=== PATIENT | male | born 1960 | race Caucasian/White ===

== ENCOUNTER → 2020-05-07 | Outpatient (CLI) | payer BC ==
[~2020-05-07] MED LIST: CPAP; MONT10T PO
== END ==
LOC: LAB SHORT 13:14
DX: E11.9 Type 2 diabetes mellitus without complications (principal)
CPT/HCPCS: 36415; 83036

== ENCOUNTER 2024-10-15 19:19 | Inpatient (IN) | payer OTHER ==
[~2024-10-15] VITALS: Ht 175.3 cm; Wt 120.5 kg
[~2024-10-15 19:19] MED LIST changes: -AMOCLA875 PO; -ATOR80 PO; -AZIT250 PO; -Aspir 8181 MG PO; -GLIP5 PO; -IBUP800 PO; -MULVITA PO; -OMEP20ER PO; -OXYM.05NI; -PRED20 PO; -VISBIOME 112.51 EACH PO
[2024-10-15 19:52] LABS: BASOPHILS ABSOLUTE AUTO 0.03 K/mm3 (0.00-0.23); BASOPHILS PERCENT AUTO 0 % (0-2); EOSINOPHILS ABSOLUTE AUTO 0.31 K/mm3 (0.00-0.68); EOSINOPHILS PERCENT AUTO 3 % (0-6); Hematocrit 47.3 % (37.0-53.0); Hemoglobin 16.8 g/dL (13.5-17.5); IMMATURE GRAN ABSOLUTE AUTO 0.04 K/mm3 (0.00-0.10); IMMATURE GRAN PERCENT AUTO 0 % (0-1); LYMPHOCYTES ABSOLUTE AUTO 0.98 K/mm3 (0.84-5.20); LYMPHOCYTES PERCENT AUTO 10 % (21-46); MONOCYTES ABSOLUTE AUTO 0.64 K/mm3 (0.16-1.47); MONOCYTES PERCENT AUTO 6 % (4-13); Mean Corpuscular HGB 32.1 pg (26.0-34.0); Mean Corpuscular HGB Conc 35.5 g/dL (31.5-36.5); Mean Corpuscular Volume 90 fL (80-100); Mean Platelet Volume 9.3 fL (9.1-12.4); NEUTROPHILS ABSOLUTE AUTO 8.34 K/mm3 (1.96-9.15); NEUTROPHILS PERCENT AUTO 81 % (41-73); Platelet Count 237 K/mm3 (150-400); RDW Coefficient Variation 12.1 % (11.7-14.2); RDW Standard Deviation 40.1 fL (35.1-46.3); Red Blood Cell Count 5.23 M/mm3 (4.30-5.90); White Blood Cell Count 10.34 K/mm3 (4.00-11.30)
[2024-10-15 20:17] LABS: Albumin, Blood 2.9 g/dL (3.4-5.0); Albumin/Globulin Ratio 0.7 (0.8-1.8); Bilirubin, Total 0.5 mg/dL (0.1-1.0); Bun/Creatinine Ratio 11.4 (12.0-20.0); Calcium, Blood 8.2 mg/dL (8.5-10.1); Creatinine, Blood 0.7 mg/dL (0.60-1.20); Globulin, Blood 4.2 g/dL (2.2-4.0); Potassium, Blood 3.5 mmol/L (3.5-5.5); Total Protein, Blood 7.1 g/dL (6.4-8.2)
[2024-10-15] MEDS ORDERED: Ipratropium/Albuterol SulF 2.5-0.5MG/3 ML Amp INH ONE (20:20)
[2024-10-15 21:21] LABS: CORONAVIRUS COVID-19 AG Negative (NEGATIVE); INFLUENZA A AG Negative (NEGATIVE); INFLUENZA B AG Negative (NEGATIVE)
[2024-10-15] MEDS ORDERED: Azithromycin 500 MG in NS 250 ML IV ONE (23:10)
[2024-10-15] MEDS ORDERED: CefTRIAXone Sodium 1,000 MG in NS 100 ML IV ONE (23:10)
[2024-10-16] VITALS (7 sets, daily range): BP systolic 113–142; BP diastolic 66–80
[2024-10-16] MEDS ORDERED: OXYM.05NI (01:34)
[2024-10-16] MEDS ORDERED: ATOR80 PO (01:34)
[2024-10-16] MEDS ORDERED: GLIP5 PO (01:35)
[2024-10-16] MEDS ORDERED: IBUP800 PO (01:36)
[2024-10-16] MEDS ORDERED: MULVITA PO (01:37)
[2024-10-16] MEDS ORDERED: Aspir 8181 MG PO (01:38)
[2024-10-16] MEDS ORDERED: Ondansetron HCl 2 MG / ML 2ML Vial IV PRN (02:00)
[2024-10-16] MEDS ORDERED: Ipratropium/Albuterol SulF 2.5-0.5MG/3 ML Amp INH PRN (02:00)
[2024-10-16] MEDS ORDERED: Potassium Chloride 40 MEQ in NS 250 ML IV ONE (02:20)
[2024-10-16] MEDS ORDERED: Piperacillin/Tazobactam Sod 4.5 GM in NS 100 ML IV SCH (02:21)
[2024-10-16] MEDS ORDERED: Vancomycin HCL 2,500 MG in NS 500 ML IV ONE (02:30)
[2024-10-16] MEDS ORDERED: MethylPREDNISolone Sod Succ 125 MG Vial IV SCH (03:00)
[2024-10-16 04:05] LABS: BASOPHILS ABSOLUTE AUTO 0.03 K/mm3 (0.00-0.23); BASOPHILS PERCENT AUTO 0 % (0-2); EOSINOPHILS PERCENT AUTO 20 % (0-6); Hematocrit 44.1 % (37.0-53.0); Hemoglobin 15.5 g/dL (13.5-17.5); IMMATURE GRAN ABSOLUTE AUTO 0.03 K/mm3 (0.00-0.10); IMMATURE GRAN PERCENT AUTO 0 % (0-1); LYMPHOCYTES ABSOLUTE AUTO 1.31 K/mm3 (0.84-5.20); LYMPHOCYTES PERCENT AUTO 14 % (21-46); MONOCYTES ABSOLUTE AUTO 0.76 K/mm3 (0.16-1.47); MONOCYTES PERCENT AUTO 8 % (4-13); Mean Corpuscular HGB 31.8 pg (26.0-34.0); Mean Corpuscular HGB Conc 35.1 g/dL (31.5-36.5); Mean Corpuscular Volume 91 fL (80-100); Mean Platelet Volume 9.6 fL (9.1-12.4); NEUTROPHILS PERCENT AUTO 58 % (41-73); Platelet Count 220 K/mm3 (150-400); RDW Standard Deviation 39.8 fL (35.1-46.3); Red Blood Cell Count 4.87 M/mm3 (4.30-5.90); White Blood Cell Count 9.63 K/mm3 (4.00-11.30)
[2024-10-16 05:00] LABS: Albumin, Blood 2.5 g/dL (3.4-5.0); Albumin/Globulin Ratio 0.7 (0.8-1.8); Bilirubin, Total 0.5 mg/dL (0.1-1.0); Calcium, Blood 7.8 mg/dL (8.5-10.1); Creatinine, Blood 0.59 mg/dL (0.60-1.20); Globulin, Blood 3.7 g/dL (2.2-4.0); Potassium, Blood 3.5 mmol/L (3.5-5.5); Total Protein, Blood 6.2 g/dL (6.4-8.2)
[2024-10-16 05:40] LABS: Source, Urine Clean Catch
--- NOTE | 2024-10-16 05:51 | NUR ---
ASSUMPTION OF CARE REPORT RECEIVED FROM ER NURSE. PT ARRIVED TO PCU AROUND 0116. PT TRANSFERED FROM [facility] TO PCU BED WITH NURSE ASSIST. PT A&O X4. HR IN THE 90'S-100'S, SR. HE DENIED CP/PRESSURE, NUMB/TINGLING. SBP STABLE. PT ON 6L VIA NC UPON ARRIVAL. PT DESATING TO 86%, PT PLACED ON OXYMASK 6L. PT REPORTS HX OF KRAIG. RT TO BEDSIDE TO SET UP CPAP. PT ON CPAP FOR APPROX 3 HOURS AND REMOVED IT. PT PLACED BACK ON OXYMASK, O2 >90%. PT ORIENTED TO ROOM. CALL LIGHT IN REACH. PT DENIES QUESTIOSN OR CONCERNS. WILL MONITOR PT.
[2024-10-16 05:54] LABS: Bilirubin, Urine Neg (Neg); Blood, Urine Neg (Neg); Glucose Qualitative, Urine 2+ (Neg); Ketones, Urine 3+ (Neg); Leukocyte Esterase, Urine Neg (Neg); Nitrite, Urine Neg (Neg); Protein, Urine 1+ (Neg); Specific Gravity, Urine 1.015 (1.003-1.022); Urobilinogen, Urine NORM (Normal)
--- NOTE | 2024-10-16 05:56 | NUR ---
SHIFT SUMMARY PT A&O X4. CALM, COOPERATIVE TO CARE. HR IN THE 90'S-100'S, SINUS RHYTHM. HE DENIES CP/PRESSURE, NUMB/TINGLING. SBP STABLE. O2 >90% ON 6L VIA OXYMASK. PROVIDER TO BEDSIDE TO DISCUSS PLAN OF CARE WITH PT. PT AGREEABLE TO PLAN. PER PROVIDER PT OKAY TO HAVE CLEAR LIQUIDS, SAMLL BITES OF FOOD BUT NOT TOO MUCH. PT RESTING IN BED AT THIS TIME. CALL LIGHT IN REACH HE DENIES QUESTIONS OR CONCERNS. WILL MONITOR PT AND REPORT TO ONCOMING RN.
[2024-10-16 06:26] LABS: Appearance, Urine Clear (Clear); Color, Urine Yellow (P-Yellow)
[2024-10-16] MEDS ORDERED: Aspirin 81 MG TabEC PO SCH (09:00)
[2024-10-16] MEDS ORDERED: Enoxaparin 40 MG/0.4 ML SYR SC SCH (09:00)
[2024-10-16 11:53] LABS: Adenovirus Not Detected (NOT DETECT); Bordetella pertussis Not Detected (NOT DETECT); Chlamydophila pneumoniae Not Detected (NOT DETECT); Coronavirus 229E Not Detected (NOT DETECT); Coronavirus HKU1 Not Detected (NOT DETECT); Coronavirus NL63 Not Detected (NOT DETECT); Coronavirus OC43 Not Detected (NOT DETECT); Human Metapneumovirus Not Detected (NOT DETECT); Human Rhinovirus/Enterovirus Not Detected (NOT DETECT); Influenza A/2009-H1 Not Detected (NOT DETECT); Influenza A/H1 Not Detected (NOT DETECT); Influenza A/H3 Not Detected (NOT DETECT); Influenza B Not Detected (NOT DETECT); Mycoplasma pneumoniae Not Detected (NOT DETECT); Parainfluenza Virus 1 Not Detected (NOT DETECT); Parainfluenza Virus 2 Not Detected (NOT DETECT); Parainfluenza Virus 3 Not Detected (NOT DETECT); Parainfluenza Virus 4 Not Detected (NOT DETECT); Respiratory Syncytial Virus Not Detected (NOT DETECT); SARS-Cov-2 (COVID-19), BioFire Not Detected (NOT DETECT)
[2024-10-16] MEDS ORDERED: Vancomycin HCL 1,750 MG in NS 500 ML IV SCH (15:00)
[2024-10-16] MEDS ORDERED: GlipiZIDE 5 MG Tab PO SCH (16:30)
--- NOTE | 2024-10-16 17:53 | NUR ---
SHIFT SUMMARY NO ACUTE CHANGES THIS SHIFT. PT A&OX4. SP02>90%ON 6L NC/MASK. PREFERS MASK. PRODUCTIVE OCCASIONAL COUGH. TELEMETRY SHOWS NSR, HR 80'S, VSS. DENIES PAIN. UP TO BATHROOM SBA TO VOID/HAVE BM X2 THIS SHIFT. PCR DONE, SEE RESULTS. SPUTUM COLLECTED, SENT TO LAB, SEE RESULTS. CBG ELEVATED THIS SHIFT, NOTIFIED. ABX INFUSED PER EMAR. PT RESTING IN ROOM EATING DINNER. CALL LIGHT IN REACH.
[2024-10-16] MEDS ORDERED: Atorvastatin 40 MG Tab PO SCH (18:00)
[2024-10-17 03:40] LABS: BASOPHILS ABSOLUTE AUTO 0.03 K/mm3 (0.00-0.23); BASOPHILS PERCENT AUTO 0 % (0-2); EOSINOPHILS ABSOLUTE AUTO 0.06 K/mm3 (0.00-0.68); EOSINOPHILS PERCENT AUTO 1 % (0-6); Hematocrit 44.2 % (37.0-53.0); Hemoglobin 15.5 g/dL (13.5-17.5); IMMATURE GRAN ABSOLUTE AUTO 0.05 K/mm3 (0.00-0.10); IMMATURE GRAN PERCENT AUTO 1 % (0-1); LYMPHOCYTES ABSOLUTE AUTO 0.84 K/mm3 (0.84-5.20); LYMPHOCYTES PERCENT AUTO 9 % (21-46); MONOCYTES ABSOLUTE AUTO 0.22 K/mm3 (0.16-1.47); MONOCYTES PERCENT AUTO 2 % (4-13); Mean Corpuscular HGB 32.4 pg (26.0-34.0); Mean Corpuscular HGB Conc 35.1 g/dL (31.5-36.5); Mean Corpuscular Volume 93 fL (80-100); Mean Platelet Volume 9.3 fL (9.1-12.4); NEUTROPHILS ABSOLUTE AUTO 8.34 K/mm3 (1.96-9.15); NEUTROPHILS PERCENT AUTO 88 % (41-73); Platelet Count 251 K/mm3 (150-400); RDW Standard Deviation 41.1 fL (35.1-46.3); Red Blood Cell Count 4.78 M/mm3 (4.30-5.90); White Blood Cell Count 9.54 K/mm3 (4.00-11.30)
[2024-10-17 04:14] LABS: Bun/Creatinine Ratio 24.6 (12.0-20.0); Calcium, Blood 8.2 mg/dL (8.5-10.1); Creatinine, Blood 0.69 mg/dL (0.60-1.20); Potassium, Blood 4.2 mmol/L (3.5-5.5)
--- NOTE | 2024-10-17 05:47 | NUR ---
SHIFT SUMMARY PATIENT ALERT, ORIENTED x4. ABLE TO MAKE NEEDS KNOWN TO STAFF. BP STABLE. ON 6L OXYGEN MASK AND CPAP DURING THE NIGHT, SPO2 LOW TO MID 90s. USING FLUTTER VALVE WHILE AWAKE. ON TELE, SR-ST. PATIENT AMBULATING TO BATHROOM INDEPENDENTLY AND USING URINAL THIS SHIFT, ADEQUATE OUTPUT. NO OTHER SIGNIFICANT CHANGES, WILL REPORT TO DAY SHIFT RN.
[2024-10-17 12:06] VITALS: BP 139/83
[2024-10-17 15:54] VITALS: BP 125/67
--- NOTE | 2024-10-17 17:06 | NUR ---
END OF SHIFT SUMMARY THE PT IS A&OX4, CALLS APPROPRAITELY, MAKES NEEDS KNOWN. HE IS IND IN THE ROOM, AND IS ABLE TO AMBULATE TO THE BATHROOM WITH MANAGING CORDS. THE PT WAS CHANGED TO MEDICAL STATUS W/O TELE. HE WAS SR AND BP REMAINS STABLE. AT THE BEGINNING OF THE SHIFT HE WAS ON 6L NC AND HAS BEEN TITRATIED DOWN TO 3L NC. WITH ACTIVITY HIS OXYGEN DOES TOUCH TO 88%. AT REST SP02 >95%. THE PT DENIES ANY SOB, AND HAS BEEN PROACTIVE WITH HIS FLUTTER VALVE AND INCENTICE SPIROMETER. THE PT CONTINUES TO RECIEVE STERIODS AND CBG'S HAVE BEEN ELEVATED, DR. PATEL STARTED THE PT ON INSULIN GLARGINE 10UNITS AT 2100. NO ACUTE EVENTS NOTED. CALL LIGHT REMAINS IN REACH. SEE NOTES FOR ANY UPDATES.
--- NOTE | 2024-10-17 19:54 | NUR ---
ON HS CBG CHECK PT CBG WAS 379. CALLED TO NOTIFY HOSPITALIST SUKHDEEP. INFORMED THAT PT BLOOD SUGAR HAS BEEN >300 THROUGHOUT DAY AND 10 UNITS OF GLARGINE WAS ORDERED FOR TONIGHT TO HELP MANAGE. INFORMED WE ARE ALSO GIVING MORE SOLU-MEDROL. SUKHDEEP ORDERED 8 UNITS HUMALOG OT NOW FOR ADDITIONAL MANAGEMENT. ORDER INPUT. CONTINUING TO MONITOR.
[2024-10-17] MEDS ORDERED: Insulin Human Lispro 100 Units/ML 3ML Syringe SC ONE (19:55)
[2024-10-17] MEDS ORDERED: Insulin Glargine-Yfgn 100 Unit/mL 3 ML SYR SC SCH (21:00)
[2024-10-17 21:03] VITALS: BP 132/72
[2024-10-18 03:58] VITALS: BP 123/72
--- NOTE | 2024-10-18 04:46 | NUR ---
Shift Summary: Pt A&O x4, cooperative w/ care. No acute changes throughout shift Independent in room, denies any cp, 2L's nasal cannula while awake, CPAP NOC O2 w/ >88-92%. had to titrate the cpap bleed in to 5L to maintain saturation. Humalog added one time support dose to support blood glucose control, see MAR and previous notes. bed at appropiate height and call light within reach continuing to monitor.
--- NOTE | 2024-10-18 06:34 | NUR ---
REVIEWED [employer] IN[employer] DOCUMENTATION AND AGREE WITH ALL ABOVE.
[2024-10-18 07:31] VITALS: BP 126/74
[2024-10-18] MEDS ORDERED: Insulin NPH 100 Unit / ML 10ML Vial SC ONE (09:00)
[2024-10-18] MEDS ORDERED: PredniSONE 20 MG Tab PO SCH (09:00)
[2024-10-18] MEDS ORDERED: AZIT250 PO (10:47)
[2024-10-18] MEDS ORDERED: PRED20 PO (10:48)
[2024-10-18] MEDS ORDERED: VISBIOME 112.51 EACH PO (10:49)
[2024-10-18] MEDS ORDERED: AMOCLA875 PO (10:50)
[2024-10-18] MEDS ORDERED: OMEP20ER PO (10:51)
[2024-10-18] MEDS ORDERED: Azithromycin 250 MG Tab PO SCH (11:00)
[2024-10-18] MEDS ORDERED: Insulin Human Lispro 100 Units/ML 3ML Syringe SC SCH (11:30)
[2024-10-18 12:04] VITALS: BP 139/74
--- NOTE | 2024-10-18 12:26 | NUR ---
THIS RN SPOKE TO DR. RODRIGUEZ ABOUT CBG 362. HE WOULD LIKE THE HIGH SLIDING SCALE OF 15UNITS TO BE GIVEN. NO ADDITIONAL. THE NPH 15 UNITS WAS GIVEN AT 0953 AND NEEDS MORE TIME TO KICK IN. SEE NOTES FOR UPDATES.
[2024-10-18 15:56] VITALS: BP 141/74
--- NOTE | 2024-10-18 17:41 | NUR ---
SHIFT SUMMARY THE PT IS A&OX4, CALLS APPROPRAITELY, AND MAKES HIS NEEDS KNOWN. HE IS IND IN THE BATHROOM, AND TOOK A SHOWER WITH PCT SET UP. HE IS ACHS BLOOD SUGAR CHECKS AND HIS CBG HAS BEEN ELEVATED. DR. JACOBS CHANGED SOME MEDICATIONS TO HELP CONTROL BLOOD SUGARS WHILE ON STERIODS. THE PT TRANSITIONED TO ORAL STERIODS TODAY. AT THE START OF THE SHIFT THE PT WAS ON 2L NC. HE WAS TITRATIED TO RA WHILE RESTING AND SP02 >93%. THE PT HAD A HOME O2 STUDY TODAY AND REQUIRED 3L O2. DR. JACOBS OPTED TO KEEP THE PT ANOTHER DAY OR TWO BECAUSE OF OXYGEN NEED AND HIS PNA WAS "BAD" WHEN COMING IN.PT WAS VERY COMFORTABLE WITH STAYING BECAUSE HE DOES NOT WANT TO NEED OXYGEN WHEN LEAVING. BASELINE HE IS RA W/ CPAP AT NIGHT. HE HAS DENIED ANY SOB. HE IS MEDICAL STATUS W/O TELE AND BP REMAINS STABLE. HE IS CURRENTLY UP IN THE CHAIR EATING DINNER, VISITING WITH FAMILY, AND HAS BEEN PROFICIENT ABOUT USING HIS FLUTTER VALVE AND INSCENTIVE SPIROMETER Q15 MIN'S. NO ACUTE EVENTS THIS SHIFT. SEE NOTES FOR ANY UPDATES.
[2024-10-18 19:38] VITALS: BP 121/71
[2024-10-18] MEDS ORDERED: Insulin Human Lispro 100 Units/ML 3ML Syringe SC ONE (21:00)
[2024-10-18] MEDS ORDERED: Insulin Glargine-Yfgn 100 Unit/mL 3 ML SYR SC SCH (21:00)
[2024-10-19 00:08] VITALS: BP 118/65
--- NOTE | 2024-10-19 03:38 | NUR ---
SHIFT SUMMARY PATIENT IS ALERT AND ORIENTED. PATIENT HAS HAD NO ACUTE EVENTS THIS SHIFT. VITAL SIGNS REVIEWED. PATIENT HAS BEEN IND THIS SHIFT. PATIENT HAS HAD CBG ELEVATED. DR WAS NOTIFIED AND HAD ADDITIONAL INSULIN GIVEN. PATIENT HAS BEEN ON RA THIS SHIFT WHILE AT REST. PATIENT HAS HAD NO COMPLAINTS OF PAIN, NAUSEA, SOB OR VOMITTING THIS SHIFT. BED IN LOCKED AND LOWEST POSITION. CALL LIGHT IN PLACE.
[2024-10-19 04:14] VITALS: BP 117/70
[2024-10-19 07:54] VITALS: BP 131/83
[2024-10-19] MEDS ORDERED: PredniSONE 20 MG Tab PO SCH (09:00)
[2024-10-19 11:19] VITALS: BP 122/79
--- NOTE | 2024-10-19 13:31 | NUR ---
DISCHARGE: PT HAS BEEN CLEARED FOR DISCHARGE HOME. PT AMBULATES AROUND ROOM AND IN DEPARTMENT W/NO SIGNIFICANT O2 DROP ON RA. ALL IV ACCESS DC'd WNL. PT DRESSES SELF. DC PAPERWORK AND INSTRUCTIONS PROVIDED, ALL QUESTIONS HAVE BEEN ANSWERED. PT ESCORTED FROM UNIT W/OUT INCIDENT.
== END 2024-10-19 13:30 | disposition home or self-care (01) | DRG 177 ==
LOC: ER 19:19 → ERHOLD 10-16 00:08 → PCU 10-16 00:08
PROVIDERS: Internal Medicine; Student in an Organized Health Care Education/Training Program; ADMIT Internal Medicine
DX: J15.69 Pneumonia due to other Gram-negative bacteria (principal); J96.01 Acute respiratory failure with hypoxia; M19.90 Unspecified osteoarthritis, unspecified site; E66.9 Obesity, unspecified; J45.909 Unspecified asthma, uncomplicated; E78.5 Hyperlipidemia, unspecified; E11.65 Type 2 diabetes mellitus with hyperglycemia; G47.33 Obstructive sleep apnea (adult) (pediatric); Z85.46 Personal history of malignant neoplasm of prostate; Z98.890 Other specified postprocedural states; Z87.891 Personal history of nicotine dependence; Z79.899 Other long term (current) drug therapy; Z79.1 Long term (current) use of non-steroidal anti-inflammatories (NSAID); Z79.82 Long term (current) use of aspirin; Z79.84 Long term (current) use of oral hypoglycemic drugs; Z79.811 Long term (current) use of aromatase inhibitors; Z68.39 Body mass index [BMI] 39.0-39.9, adult
CPT/HCPCS: 0202U; 36415; 71046; 71260; 80048; 80053; 82947; 83605; 83735; 83880; 85025; 87070; 87205; 87428-QW; 93005; 93010; 93306; 94640; 94660; 94664; 94761; 94762; 96374-59; 99285-25; A9270; J0456; J0696; J1650; J1815; J2543; J2919; J3370; J3480; J7040; J7050; J7512; Q9967

== ENCOUNTER → 2024-10-15 | Outpatient (CLI) | payer OTHER ==
[~2024-10-15] MED LIST changes: +AMOCLA875 PO; +ATOR80 PO; +AZIT250 PO; +Aspir 8181 MG PO; +GLIP5 PO; +IBUP800 PO; +MULVITA PO; +OMEP20ER PO; +OXYM.05NI; +PRED20 PO; +VISBIOME 112.51 EACH PO
[2024-10-15 18:04] LABS: BASOPHILS ABSOLUTE AUTO 0.02 K/mm3 (0.00-0.23); BASOPHILS PERCENT AUTO 0 % (0-2); Hematocrit 48.7 % (37.0-53.0); Hemoglobin 17.2 g/dL (13.5-17.5); LYMPHOCYTES ABSOLUTE AUTO 0.73 K/mm3 (0.84-5.20); LYMPHOCYTES PERCENT AUTO 8 % (21-46); MONOCYTES ABSOLUTE AUTO 0.54 K/mm3 (0.16-1.47); MONOCYTES PERCENT AUTO 6 % (4-13); Mean Corpuscular HGB Conc 35.3 g/dL (31.5-36.5); Mean Corpuscular Volume 91 fL (80-100); Mean Platelet Volume 9.4 fL (9.1-12.4); Platelet Count 247 K/mm3 (150-400); RDW Coefficient Variation 12.1 % (11.7-14.2); RDW Standard Deviation 39.8 fL (35.1-46.3); Red Blood Cell Count 5.38 M/mm3 (4.30-5.90); White Blood Cell Count 9.69 K/mm3 (4.00-11.30)
[2024-10-15 18:12] LABS: EOSINOPHILS ABSOLUTE AUTO 1.19 K/mm3 (0.00-0.68); EOSINOPHILS PERCENT AUTO 12 % (0-6); IMMATURE GRAN ABSOLUTE AUTO 0.03 K/mm3 (0.00-0.10); IMMATURE GRAN PERCENT AUTO 0 % (0-1); NEUTROPHILS ABSOLUTE AUTO 7.18 K/mm3 (1.96-9.15); NEUTROPHILS PERCENT AUTO 74 % (41-73)
[2024-10-15 18:36] LABS: Albumin/Globulin Ratio 0.7 (0.8-1.8); Bilirubin, Total 0.8 mg/dL (0.1-1.0); Bun/Creatinine Ratio 8.1 (12.0-20.0); Calcium, Blood 8.8 mg/dL (8.5-10.1); Creatinine, Blood 0.99 mg/dL (0.60-1.20); Globulin, Blood 4.3 g/dL (2.2-4.0); Potassium, Blood 3.6 mmol/L (3.5-5.5); Total Protein, Blood 7.3 g/dL (6.4-8.2)
== END ==
LOC: LAB 17:59 → LAB SHORT 17:59
DX: R06.02 Shortness of breath (principal)
CPT/HCPCS: 80053; 85025